=== PATIENT | male | born 1955 | race Caucasian/White ===

== ENCOUNTER 2017-04-07 10:27 | Emergency (ER) | payer BC ==
[~2017-04-07] VITALS: Ht 182.9 cm; Wt 147.4 kg
[2017-04-07] MEDS ORDERED: CYCLOBENZAPRINE5 MG PO (12:23)
[2017-04-07] MEDS ORDERED: VICODIN ES 7.51 EACH PO (12:23)
[2017-04-07] MEDS ORDERED: ONDANSETRON HCL4 M2 PO (12:48)
== END 2017-04-07 13:10 | disposition home or self-care (01) ==
LOC: ER 10:27
DX: M54.5 Low back pain (principal)